=== PATIENT | female | born 1960 | race Two or more races ===

== ENCOUNTER → 2016-08-25 | Emergency (ER) | payer MEDICAID ==
[~2016-08-25] VITALS: Ht 162.6 cm; Wt 127.0 kg
[~2016-08-25] MED LIST: ARIP2TAB; CLON1TAB; HYDR-1421; SERT-275; TRAZADONE
[2016-08-25 20:24] VITALS: BP 145/75
== END | disposition home or self-care (01) ==
LOC: ER 17:07
DX: J20.9 Acute bronchitis, unspecified (principal); J01.90 Acute sinusitis, unspecified; J45.909 Unspecified asthma, uncomplicated; I10 Essential (primary) hypertension
CPT/HCPCS: 71020

== ENCOUNTER 2017-01-04 10:28 | Emergency (ER) | payer MEDICAID ==
[~2017-01-04] VITALS: Ht 162.6 cm; Wt 124.7 kg
[2017-01-04 10:38] VITALS: BP 137/86
[2017-01-04] MEDS ORDERED: ALPRAZolam 0.5 MG TAB PO ONE (10:45)
== END 2017-01-04 11:23 | disposition home or self-care (01) ==
LOC: EDBD 10:28 → ER 10:30
DX: F41.9 Anxiety disorder, unspecified (principal); J45.909 Unspecified asthma, uncomplicated; F32.9 Major depressive disorder, single episode, unspecified; I10 Essential (primary) hypertension; F12.10 Cannabis abuse, uncomplicated; Z90.49 Acquired absence of other specified parts of digestive tract; Z90.89 Acquired absence of other organs; Z98.890 Other specified postprocedural states; Z88.8 Allergy status to other drugs, medicaments and biological substances

== ENCOUNTER 2018-11-24 17:58 | Emergency (ER) | payer MEDICAID ==
[~2018-11-24] VITALS: Ht 162.6 cm; Wt 117.9 kg
[2018-11-24] MEDS ORDERED: IPRATROPIUM BROM 0.5 MG/2.5ML INH SOL NEB ONE (18:15)
[2018-11-24] MEDS ORDERED: ALBUTEROL SULF 2.5 MG/0.5ML(0.5%) NEB SOLN NEB ONE (18:15)
[2018-11-24] MEDS ORDERED: methylPREDNISolone SOD SUCC 125 MG/2 ML VL IV ONE (22:00)
[2018-11-24] MEDS ORDERED: IPRATROPIUM BROM 0.5 MG/2.5ML INH SOL HHN ONE (22:00)
[2018-11-24] MEDS ORDERED: SODIUM CHLORIDE 0.9% 1,000 ML IV ONE (22:00)
[2018-11-24] MEDS ORDERED: ALBUTEROL SULF 2.5 MG/0.5ML(0.5%) NEB SOLN HHN ONE (22:00)
[2018-11-25] MEDS ORDERED: IPRATROPIUM BROM 0.5 MG/2.5ML INH SOL NEB ONE
[2018-11-25] MEDS ORDERED: IBUPROFEN 600 MG TAB PO ONE (00:15)
[2018-11-25] MEDS ORDERED: POTASSIUM EFFERVESENT TAB 25 MEQ PO ONE (00:15)
[2018-11-25] MEDS ORDERED: ALBUTEROL SULF 2.5 MG/0.5ML(0.5%) NEB SOLN ONE (01:15)
[2018-11-25] MEDS ORDERED: ALBUTEROL SULF 2.5 MG/0.5ML(0.5%) NEB SOLN NEB ONE ×2 (01:30)
[2018-11-25] MEDS ORDERED: ACETYLCYSTEINE 10 %(100MG/ML) SOL 4ML NEB ONE (01:30)
[2018-11-25 01:31] VITALS: BP 120/75
== END 2018-11-25 02:25 | disposition home or self-care (01) ==
LOC: ER 18:05
DX: J45.902 Unspecified asthma with status asthmaticus (principal); I10 Essential (primary) hypertension; F12.10 Cannabis abuse, uncomplicated; Z90.49 Acquired absence of other specified parts of digestive tract
CPT/HCPCS: 71046; 94640; 94761; 96374; 99285; J2930; J7611; J7644; 96361

== ENCOUNTER 2019-05-27 12:15 | Emergency (ER) | payer MEDICAID ==
[~2019-05-27] VITALS: Ht 162.6 cm; Wt 120.2 kg
[~2019-05-27 12:15] MED LIST changes: +DOXY-338 PO; +HYDR-4833 PO; +IPRA1SOL3 IN; +LISI-646 PO
[2019-05-27 12:40] VITALS: BP 129/88
== END 2019-05-27 16:07 | disposition home or self-care (01) ==
LOC: ER 12:16
DX: M79.644 Pain in right finger(s) (principal); J45.909 Unspecified asthma, uncomplicated; I10 Essential (primary) hypertension; F12.10 Cannabis abuse, uncomplicated; Z90.49 Acquired absence of other specified parts of digestive tract; Z79.899 Other long term (current) drug therapy
CPT/HCPCS: 29125; 73130

== ENCOUNTER 2019-12-14 00:33 | Emergency (ER) | payer MEDICAID ==
[~2019-12-14] VITALS: Ht 162.6 cm; Wt 119.7 kg
[~2019-12-14 00:33] MED LIST changes: +IPRA0.00 IN; -IPRA1SOL3 IN
[2019-12-14 01:01] LABS: Urine Bacteria NONE SEEN /hpf (None Seen); Urine Blood Negative /uL (Negative); Urine Specific Gravity 1.004 (1.001-1.035); Urine WBC 2 /hpf (0 - 5)
[2019-12-14 01:37] LABS: Basophils # (auto) 0 10 ^3/uL (0-0.2); Basophils % (auto) 0.4 % (0.0-2.0); Eosinophils # (auto) 0.5 10 ^3/uL (0-0.8); Eosinophils % (auto) 5.1 % (0.0-7.0); Hematocrit 39.3 % (36.0-46.0); Hemoglobin 13.2 g/dL (12.2-16.2); Lymphocytes # (auto) 3.4 10 ^3/uL (0.4-5.4); Lymphocytes % (auto) 33.1 % (10.0-50.0); Mean Corpuscular Hemoglobin 28.8 pg (28.0-32.0); Mean Corpuscular Hgb Conc. 33.6 g/dL (32.0-36.0); Mean Corpuscular Volume 85.7 fL (80.0-100.0); Monocytes # (auto) 0.5 10 ^3/uL (0-1.3); Neutrophils # (auto) 5.7 10 ^3/uL (1.6-8.6); Neutrophils % (auto) 56.4 % (37.0-80.0); Nucleated Red Blood Cells % 0.1 %; Platelet Count (auto) 248 10^3/uL (140-450); Red Blood Cells 4.59 10^6/uL (4.0-5.20); White Blood Cell 10.2 10^3/uL (4.4-10.8)
[2019-12-14 01:57] LABS: Albumin 3.6 g/dL (3.4-5.0); Anion Gap 5 (5-15); Blood Urea Nitrogen 16 mg/dL (7-18); Calcium 8.8 mg/dL (8.5-10.1); Carbon Dioxide 25 mmol/L (21-32); Chloride 111 mmol/L (98-107); Glucose 95 mg/dL (74-106); Magnesium 2.2 mg/dL (1.6-2.6); Potassium 3.4 mmol/L (3.5-5.1); Sodium 141 mmol/L (136-145)
[2019-12-14 01:58] LABS: Alanine Aminotransferase 32 U/L (13-56); Aspartate Aminotransferase 18 U/L (15-37); BUN/Creatinine Ratio 26.2; GFR African American 130 mL/min; GFR Non-African American 107 mL/min
[2019-12-14 02:04] LABS: Alkaline Phosphatase 108 U/L (45-117); Bilirubin, Total 0.5 mg/dL (0.2-1.0); Total Protein 7.6 g/dL (6.4-8.2)
[2019-12-14 02:29] LABS: CRP High Sensitivity 1.21 mg/dL (< 0.3); Lactate Dehydrogenase 172 U/L (84-246)
[2019-12-14] MEDS ORDERED: methylPREDNISolone SOD SUCC 125 MG/2 ML VL IV ONE (02:30)
[2019-12-14] MEDS ORDERED: SODIUM CHLORIDE 0.9% 1,000 ML IV ONE (02:30)
[2019-12-14] MEDS ORDERED: levoFLOXacin 750MG 150 ML IV ONE (02:30)
[2019-12-14] MEDS ORDERED: ACETAMINOPHEN 325 MG TAB PO ONE (02:30)
[2019-12-14 04:00] VITALS: BP 134/85
== END 2019-12-14 06:19 | disposition home or self-care (01) ==
LOC: EDBD 00:33 → ER 00:33
DX: J45.901 Unspecified asthma with (acute) exacerbation (principal); J20.9 Acute bronchitis, unspecified; I10 Essential (primary) hypertension; Z90.49 Acquired absence of other specified parts of digestive tract; Z20.828 Contact with and (suspected) exposure to other viral communicable diseases
CPT/HCPCS: 36415; 71045; 80053; 81001; 82728; 83605; 83615; 83735; 84443; 84484; 85025; 85379; 86141; 87070; 87804; 87880; 93005; 96365; 96375; 99285; J1956; J2930; J7030; U0003

== ENCOUNTER → 2020-07-25 | Outpatient (CLI) | payer MEDICAID | END | disposition home or self-care (01) | LOC: LAB 17:44 | PROVIDERS: ATTEND Nurse Practitioner Family | DX: R19.7 Diarrhea, unspecified (principal) | CPT/HCPCS: 87045; 87177; 87427; 87493 ==

== ENCOUNTER 2025-05-15 16:30 | Emergency (ER) | payer MEDICAID ==
[~2025-05-15] VITALS: Ht 170.2 cm; Wt 112.0 kg
[~2025-05-15 16:30] MED LIST changes: +CLON-1004; -CLON1TAB; -DOXY-338 PO; +DOXY1CAP58 PO; -LISI-646 PO; +LISI20TA56 PO; -SERT-275; +SERT25TA28
[2025-05-15 16:41] VITALS: BP 140/106; PULSE 114; RESP 18; TEMP 98.1
[2025-05-15 16:45] VITALS: O2SAT 97
--- NOTE | 2025-05-15 16:59 | ED.PDOC ---
GI ASSESSMENT HPI Comments This is a 64 year-old female who presents to the ED with a chief complaint of diarrhea with associated N for X3 weeks. Patient states she has been taking Saxenda injections for for weight loss for about X1 month, as prescribed by her PCP. Patient states she initially felt constipated after taking the injections, prior to, when onset of diarrhea began. Patient reports being seen by [facility] yesterday for diarrhea, where she was prescribed Magnesium Citrate. Patient reports stool is yellow in color with an associated chemical odor. Patient has no further complaints at this time and otherwise denies further associated symptoms of dizziness, fever, weakness, emesis, hematemesis, dysuria, or hematuria. Chief Complaint: Diarrhea Time Seen by MD: 16:44 Primary Care Provider: TAWNYA Allergies: Uncoded Allergies: DEMEROL (Allergy, Unknown, 11/16/15) Home Meds Active Scripts Ipratropium-Albuterol (Ipratropium [place]/Albut) 1 Ira Ira, 1 IRA IN Q6HP PRN, #120 Prov:JAVIER BOLAÑOS MD 12/29/18 Doxycycline (Monohydrate) (Doxycycline) 100 Mg Cap, 100 MG PO BID, #10 Prov:JAVIER BOLAÑOS MD 12/29/18 Reported Medications Lisinopril (Lisinopril) 20 Mg Tab, 1 TAB PO DAILY, #30 TAB 5 Refills 12/29/18 Hydrocodone-Acetaminophen ([place] 5/325MG) 1 Tab Tb, PO, #90 TAB 12/28/18 Sertraline Hcl (Sertraline Hcl) 25 Mg Tab, DAILY 11/12/10 Aripiprazole (Abilify) 2 Mg Tab, 1 MG 11/12/10 [Trazadone] No Conflict Check 11/12/10 Hydrocodone-Acetaminophen (Vicodin) 1 Tab Tab 06/28/10 Clonazepam (Klonopin) 1 Mg Tab 06/16/10 Information Source: Patient Mode of Arrival: Ambulatory Timing: Weeks Duration: Since onset Severity: Moderate Associated sign and symptoms: Nausea, Diarrhea Past Medical History PAST MEDICAL HISTORY: Anxiety, Asthma, Depression, HTN Surgical History: Appendectomy, Cholecystectomy, 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 History Family History Family History: Family hx of DM, Family hx of HTN Social History Smoker: Non-Smoker Alcohol: Denies ETOH Use Drugs: Marijuana Lives In: Home Constitutional: denies: chills, diaphoresis, fatigue, fever, malaise, sweats, weakness, others EENTM: denies: blurred vision, double vision, ear bleeding, ear discharge, ear drainage, ear pain, ear ringing, eye pain, eye redness, hearing loss, mouth pain, mouth swelling, nasal discharge, nose bleeding, nose congestion, nose pain, photophobia, tearing, throat pain, throat swelling, voice changes, others Respiratory: denies: cough, hemoptysis, orthopnea, SOB at rest, shortness of breath, SOB with excertion, stridor, wheezing, others Cardiovascular: denies: chest pain, dizzy spells, diaphoresis, Dyspnea on exertion, edema, irregular heart beat, left arm pain, lightheadedness, palpitations, PND, syncope, others Gastrointestinal: reports: diarrhea, nausea; denies: abdomen distended, abdominal pain, blood streaked bowels, constipated, dysphagia, difficulty swallowing, hematemesis, melena, poor appetite, poor fluid intake, rectal bleeding, rectal pain, vomiting, others Genitourinary: denies: abnormal vagina bleeding, burning, dyspareunia, dysuria, flank pain, frequency, hematuria, incontinence, pain, , vagina discharge, urgency, others Neurological: denies: dizziness, fainting, headache, left sided numbness, left sided weakness, numbness, paresthesia, pre-existing deficit, right sided numbness, right sided weakness, seizure, speech problems, tingling, tremors, weakness, others Musculoskeletal: denies: back pain, gout, joint pain, joint swelling, muscle pain, muscle stiffness, neck pain, others Integumetry: denies: bruises, change in color, change in hair/nails, dryness, laceration, lesions, lumps, rash, wounds, others Allergic/Immunocompromised: denies: Difficulty Healing, Frequent Infections, Hives, Itching, others Hematologic/Lymphatic: denies: anemia, blood clots, easy bleeding, easy bruising, swollen glands, others Endocrine: denies: excessive hunger, excessive sweating, excessive thirst, excessive urination, flushing, intolerance to cold, intolerance to heat, unexplained weight gain, unexplained weight loss, others Psychiatric: denies: anxiety, bipolar disorder, depression, hopeless, panic disorder, schizophrenia, sleepless, suicidal, others All Other Systems: Reviewed and Negative Physical Exam General Appearance: Moderate Distress HEENT: Normal ENT Inspection, Pharynx Normal, TMs Normal Neck: Full Range of Motion, Non-Tender, Normal, Normal Inspection Respiratory: Chest Non-Tender, Lungs Clear, No Accessory Muscle Use, No Respiratory Distress, Normal Breath Sounds Cardiovascular: No Edema, No JVD, No Murmur, No Gallop, Normal Peripheral Pulses, Regular Rate/Rhythm Breast Exam: Deferred Gastrointestinal: No Organomegaly, Non Tender, No Pulsatile Mass, Normal Bowel Sounds, Soft Genitalia: Deferred Pelvic: Deferred Rectal: Deferred Extremities: No calf tenderness, Normal capillary refill, Normal inspection, Normal range of motion, Non-tender, No pedal edema Musculoskeletal : Apperance: Normal Neurologic: Alert, manager concrete II-XII nml as Tested, No Motor Deficits, Normal Affect, Normal Mood, No Sensory Deficits Cerebellar Function: Normal Reflexes: Normal Skin: Dry, Normal Color, Warm Peripheral Pulses: 3+ Radial (R), 3+ Radial (L) Lymphatic: No Adenopathy Was a procedure done? Was a procedure done?: No GI differential Dx Differential Diagnosis: Constipation, Diverticular disease, Esophagitis, Gastritis/PUD, Gastroenteritis, Urolithiasis, Dehydration, Food Poisoning, Bacterial, Parasitic, Viral X-Ray, Labs, Meds, VS Vital Signs Date Time Temp Pulse Resp B/P (MAP) Pulse Ox O2 Delivery O2 Flow Rate FiO2 05/15/25 16:45 97 Room Air* 0 21 05/15/25 16:41 98.1 114 18 140/106 (117) 96 98.1 05/15/25 16:33 98.1 90 18 177/99 99 98.1 Lab Test 05/15/25 16:52 Range/Units White Blood Count 7.5 4.4-10.8 10^3/uL Red Blood Count 4.67 4.0-5.20 10^6/uL Hemoglobin 13.5 12.2-16.2 g/dL Hematocrit 39.8 36.0-46.0 % Mean Corpuscular Volume 85.2 80.0-100.0 fL Mean Corpuscular Hemoglobin 28.8 28.0-32.0 pg Mean Corpuscular Hemoglobin Concent 33.8 32.0-36.0 g/dL Red Cell Distribution Width 13.8 11.8-14.3 % Platelet Count 235 140-450 10^3/uL Mean Platelet Volume 9.2 6.9-10.8 fL Neutrophils (%) (Auto) 47.6 37.0-80.0 % Lymphocytes (%) (Auto) 40.9 10.0-50.0 % Monocytes (%) (Auto) 6.7 0.0-12.0 % Eosinophils (%) (Auto) 4.4 0.0-7.0 % Basophils (%) (Auto) 0.4 0.0-2.0 % Neutrophils # (Auto) 3.6 1.6-8.6 10 ^3/uL Lymphocytes # (Auto) 3.1 0.4-5.4 10 ^3/uL Monocytes # (Auto) 0.5 0-1.3 10 ^3/uL Eosinophils # (Auto) 0.3 0-0.8 10 ^3/uL Basophils # (Auto) 0 0-0.2 10 ^3/uL Nucleated Red Blood Cells 0.2 % Sodium Level Pending Potassium Level Pending Chloride Level Pending Carbon Dioxide Level Pending Anion Gap Pending Blood Urea Nitrogen Pending Creatinine Pending Glomerular Filtration Rate Calc Pending BUN/Creatinine Ratio Pending Serum Glucose Pending Calcium Level Pending Patient alert. Complaining of having diarrhea. She is emotional. Vitals stable. Abdomen is soft nontender. Ambulating. No sign of any distress. No acute process. No leg swelling. No shortness a breath. Was seen at a different ER yesterday. She does have prescription for Levaquin Flagyl antibiotic. She was told to continue taking her antibiotics. Explained to the patient. Was told to follow up with her primary care physician. Was told to come back if there is any problem. Images Reviewed?: Images reviewed and evaluated by me Time of 1ST Reevaluation: 17:41 Reevaluation 1ST: Improved Patient Education/Counseling: Diagnosis, Treatment Family Education/Counseling: No Family Present SEPSIS Sepsis Screen Date sepsis recognized/suspect: May 15, 2025 Time Sepsis recognized/suspect: 1634 Recent Procedure: No On Antibiotic Therapy: No Respiratory Rate >20: No Heart Rate >90: No Temp<36 C (96.8 F) or >38.3 C: No SBP <90 or MAP <65 mmHG: No New Acute Mental Status Change: No Is the patient on CPAP, BIPAP,: No Physician Orders Basic Metabolic Panel (05/15/25 16:52) Vital Signs Date Time Temp Pulse Resp B/P (MAP) Pulse Ox O2 Delivery O2 Flow Rate FiO2 05/15/25 16:45 97 Room Air* 0 21 05/15/25 16:41 98.1 114 18 140/106 (117) 96 98.1 05/15/25 16:33 98.1 90 18 177/99 99 98.1 Laboratory Tests Test 05/15/25 16:52 White Blood Count 7.5 10^3/uL (4.4-10.8) Departure 1 Departure Time of Disposition: 17:01 Impression: Primary Impression: Acute anxiety Additional Impression: Gastroenteritis Disposition: 01 HOME / SELF CARE / HOMELESS Condition: Good Discharged With: Self Critical Care Note Critical Care Time?: No Stability Stability form required: No Heart Score Heart Score: Heart Score Response (Comments) Value History N/A 0 EKG N/A 0 Age N/A 0 Risk Factors N/A 0 Troponin N/A 0 Total 0 I personally scribed for SHIVANI ORDAZ MD ([email or web address]) on 05/15/25 at 16:59. Electronically submitted by Daphney Zelaya ([employer]). I personally scribed for SHIVANI ORDAZ MD ([email or web address]) on 05/15/25 at 17:02. Electronically submitted by Daphney Zelaya ([employer]). SHIVANI ORDAZ MD May 15, 2025 16:59
[2025-05-15 17:04] LABS: Hematocrit 39.8 % (36.0-46.0); Hemoglobin 13.5 g/dL (12.2-16.2); Mean Corpuscular Hemoglobin 28.8 pg (28.0-32.0); Mean Corpuscular Volume 85.2 fL (80.0-100.0); Nucleated Red Blood Cells % 0.2 %
[2025-05-15 17:22] LABS: Chloride 102 mmol/L (98-107); Potassium 4.2 mmol/L (3.5-5.1)
[2025-05-15 17:23] LABS: Anion Gap 9 (5-15); Calcium 9.1 mg/dL (8.7-10.4); Carbon Dioxide 21 mmol/L (20-31)
[2025-05-15 17:25] LABS: Sodium 132 mmol/L (136-145)
[2025-05-15 17:28] LABS: BUN/Creatinine Ratio 11.0 (10.0-20.0); Glucose 95 mg/dL (74-106)
[2025-05-15 17:33] LABS: Blood Urea Nitrogen 8 mg/dL (9-23)
== END 2025-05-15 17:53 | disposition home or self-care (01) ==
LOC: ER 16:30
DX: F41.9 Anxiety disorder, unspecified (principal); K52.9 Noninfective gastroenteritis and colitis, unspecified; J45.909 Unspecified asthma, uncomplicated; I10 Essential (primary) hypertension; F32.A Depression, unspecified; F12.90 Cannabis use, unspecified, uncomplicated; Z79.899 Other long term (current) drug therapy; Z90.49 Acquired absence of other specified parts of digestive tract; Z88.5 Allergy status to narcotic agent
CPT/HCPCS: 36415; 80048; 85025